=== PATIENT | female | born 1950 | race Caucasian/White ===

== ENCOUNTER → 2017-07-05 | Outpatient (REF) | payer MEDICARE | LOC: M LAB REF 11:10 | DX: Z11.59 Encounter for screening for other viral diseases (principal) | CPT/HCPCS: 87633 ==

== ENCOUNTER 2017-07-06 07:28 | Emergency (ER) | payer MEDICARE ==
[2017-07-06] MEDS: ONDANSETRON 4MG/2ML VIAL (J2405) IV (08:15)
[2017-07-06 08:27] LABS: HEMATOCRIT 36.5 % (36.0-47.0); HEMOGLOBIN 12.6 g/dl (12.0-16.0); MEAN CORPUSCULAR HEMOGLOBIN 30.8 pg (27.0-33.0); MEAN CORPUSCULAR HGB CONC 34.5 g/dl (32.0-36.5); MEAN CORPUSCULAR VOLUME 89.2 fl (80.0-96.0); PLATELET COUNT, AUTOMATED 169 10^3/uL (150-450); RED BLOOD COUNT 4.09 10^6/uL (4.00-5.40); RED CELL DISTRIBUTION WIDTH 12.4 % (11.5-14.5); WHITE BLOOD COUNT 7.9 10^3/uL (4.0-10.0)
[2017-07-06 08:34] LABS: ADD MANUAL DIFFER YES; DIFF SLIDE NUMBER 126; POSITIVE MORPH POS FLAG
[2017-07-06 08:44] LABS: ANION GAP 8 MEQ/L (8-16); BLOOD UREA NITROGEN 20 MG/DL (7-18); CALCIUM LEVEL 8.6 MG/DL (8.8-10.2); CARBON DIOXIDE LEVEL 27 MEQ/L (21-32); CHLORIDE LEVEL 102 MEQ/L (98-107); CREATININE FOR GFR 0.91 MG/DL (0.55-1.30); GLOMERULAR FILTRATION RATE > 60.0 (>45); GLUCOSE, FASTING 112 MG/DL (70-100); POTASSIUM SERUM 3.5 MEQ/L (3.5-5.1); SODIUM LEVEL 137 MEQ/L (136-145)
[2017-07-06 08:45] LABS: LACTIC ACID SEPSIS PROTOCOL 1.7 MMOL/L (0.4-2.0)
[2017-07-06 08:47] LABS: BANDS 18 % (< 11); LYMPHOCYTES 13 % (16-52); METAMYELOCYTES 2 % (0-0); MONOCYTES 7 % (0-8); NEUTROPHILS 60 % (35-75)
[2017-07-06 08:48] LABS: ANISOCYTOSIS 1+; PLATELET CLUMPS SMALL AMT; PLATELET ESTIMATE NORMAL (NORMAL); POIKILOCYTOSIS 1+
[2017-07-06] MEDS: NS 1,000 ML IV (09:25)
[2017-07-06] MEDS: ACETAMINOPHEN TAB 650MG DOSE (2X325MG) PO (10:03)
[2017-07-06] MEDS: KETOROLAC 30 MG/ML VIAL (J1885) IV (10:04)
== END 2017-07-06 10:58 | disposition home or self-care (01) ==
LOC: M ED 07:28
DX: J09.X2 Influenza due to identified novel influenza A virus with other respiratory manifestations (principal); R93.8 Abnormal findings on diagnostic imaging of other specified body structures; Z88.8 Allergy status to other drugs, medicaments and biological substances
CPT/HCPCS: J1885

== ENCOUNTER → 2017-12-15 | Outpatient (REF) | payer MEDICARE ==
[2017-12-17 14:40] LABS: FATS NEUTRAL Normal (.); FATS TOTAL Normal (.)
== END ==
LOC: M LAB REF 15:58
DX: R19.4 Change in bowel habit (principal)
CPT/HCPCS: 82705

== ENCOUNTER → 2019-11-27 | Outpatient (CLI) | payer MEDICARE ==
[~2019-11-27] MED LIST: IRON325T9 PO; PROB250C PO; VITA100T59 PO
== END ==
LOC: M LABSMTC 10:19
PROVIDERS: ATTEND Anesthesiology
DX: Z03.818 Encounter for observation for suspected exposure to other biological agents ruled out (principal)
CPT/HCPCS: C9803; U0003

== ENCOUNTER 2019-11-30 09:05 | Day surgery (SDC) | payer MEDICARE ==
[~2019-11-30] VITALS: Ht 167.6 cm; Wt 55.8 kg
[~2019-11-30 09:05] MED LIST changes: +LIDOCAINE 2% 100MG/5ML SDV (FOR ANES.) As Ordered ONE; +NS 1,000 ML IV ONE; +propofoL 200 MG/20 ML VIAL As Ordered ONE
--- NOTE | 2019-11-30 11:20 | ROOR ---
Patient Name: Lisa Georges Procedure Date: 11/30/2019 10:30 AM Date of : 1950 Age: 69 Room: [facility] Gender: Female Note Status: Finalized Procedure: Upper GI endoscopy Indications: Iron deficiency anemia Providers: Elvis Brown MD Referring MD: SPARKLE Angel Requesting Provider: Medicines: Monitored Anesthesia Care Complications: No immediate complications. Procedure: Pre-Anesthesia Assessment: - Prior to the procedure, a History and Physical was performed, and patient medications and allergies were reviewed. The patient is competent. The risks and benefits of the procedure and the sedation options and risks were discussed with the patient. All questions were answered and informed consent was obtained. Patient identification and proposed procedure were verified by the physician, the nurse and the anesthesiologist in the endoscopy suite. Mental Status Examination: alert and oriented. Airway Examination: normal oropharyngeal airway and neck mobility. Respiratory Examination: clear to auscultation. CV Examination: normal. Prophylactic Antibiotics: The patient does not require prophylactic antibiotics. Prior Anticoagulants: The patient has taken no previous anticoagulant or antiplatelet agents. ASA Grade Assessment: II - A patient with mild systemic disease. After reviewing the risks and benefits, the patient was deemed in satisfactory condition to undergo the procedure. The anesthesia plan was to use monitored anesthesia care (MAC). Immediately prior to administration of medications, the patient was re-assessed for adequacy to receive sedatives. The heart rate, respiratory rate, oxygen saturations, blood pressure, adequacy of pulmonary ventilation, and response to care were monitored throughout the procedure. The physical status of the patient was re-assessed after the procedure. The Endoscope was introduced through the mouth, and advanced to the second part of duodenum. The upper GI endoscopy was accomplished without difficulty. The patient tolerated the procedure well. Findings: The examined esophagus was normal. A small hiatal hernia was present. The Z-line was regular and was found 40 cm from the incisors. The entire examined stomach was normal. The duodenal bulb, first portion of the duodenum and second portion of the duodenum were normal. Impression: - Normal esophagus. - Small hiatal hernia. - Z-line regular, 40 cm from the incisors. - Normal stomach. - Normal duodenal bulb, first portion of the duodenum and second portion of the duodenum. - No specimens collected. Recommendation: - Discharge patient to home (ambulatory). Elvis Brown MD Elvis Brown MD 11/30/2019 11:19:42 AM Electronically signed by Elvis Brown MD Number of Addenda: 0 Note Initiated On: 11/30/2019 10:30 AM Estimated Blood Loss: Estimated blood loss: none.
--- NOTE | 2019-11-30 11:24 | ROOR ---
Patient Name: Lisa Georges Procedure Date: 11/30/2019 10:30 AM Date of : 1950 Age: 69 Room: [facility] Gender: Female Note Status: Finalized Procedure: Colonoscopy Indications: Iron deficiency anemia Providers: Elvis Brown MD Referring MD: SPARKLE Angel Requesting Provider: Medicines: Monitored Anesthesia Care Complications: No immediate complications. Procedure: Pre-Anesthesia Assessment: - Prior to the procedure, a History and Physical was performed, and patient medications and allergies were reviewed. The patient is competent. The risks and benefits of the procedure and the sedation options and risks were discussed with the patient. All questions were answered and informed consent was obtained. Patient identification and proposed procedure were verified by the physician, the nurse and the anesthesiologist in the endoscopy suite. Mental Status Examination: alert and oriented. Airway Examination: normal oropharyngeal airway and neck mobility. Respiratory Examination: clear to auscultation. CV Examination: normal. Prophylactic Antibiotics: The patient does not require prophylactic antibiotics. Prior Anticoagulants: The patient has taken no previous anticoagulant or antiplatelet agents. ASA Grade Assessment: II - A patient with mild systemic disease. After reviewing the risks and benefits, the patient was deemed in satisfactory condition to undergo the procedure. The anesthesia plan was to use monitored anesthesia care (MAC). Immediately prior to administration of medications, the patient was re-assessed for adequacy to receive sedatives. The heart rate, respiratory rate, oxygen saturations, blood pressure, adequacy of pulmonary ventilation, and response to care were monitored throughout the procedure. The physical status of the patient was re-assessed after the procedure. The Colonoscope was introduced through the anus and advanced to the cecum, identified by appendiceal orifice and ileocecal valve. The colonoscopy was technically difficult and complex due to significant looping and a tortuous colon. Successful completion of the procedure was aided by applying abdominal pressure. The patient tolerated the procedure well. The quality of the bowel preparation was good. Findings: Hemorrhoids were found on perianal exam. An infiltrative non-obstructing medium-sized mass was found in the ascending colon. The mass was partially circumferential (involving one-half of the lumen circumference). The mass measured three cm in length. No bleeding was present. This was biopsied with a cold forceps for histology. Estimated blood loss was minimal. The retroflexed view of the distal rectum and anal verge was normal and showed no anal or rectal abnormalities. Impression: - Hemorrhoids found on perianal exam. - Likely malignant tumor in the ascending colon. Biopsied. - The distal rectum and anal verge are normal on retroflexion view. Recommendation: - Discharge patient to home (ambulatory). - Return to my office in 1 week. - Perform CT scan (computed tomography) of the abdomen with contrast at appointment to be scheduled. Elvis Brown MD Elvis Brown MD 11/30/2019 11:23:40 AM Electronically signed by Elvis Brown MD Number of Addenda: 0 Note Initiated On: 11/30/2019 10:30 AM Estimated Blood Loss: Estimated blood loss was minimal.
[2019-11-30 12:01] VITALS: BP 144/70
== END 2019-11-30 12:04 | disposition home or self-care (01) ==
LOC: M OPP 09:05
PROVIDERS: ATTEND Surgery
DX: D50.9 Iron deficiency anemia, unspecified (principal); C18.9 Malignant neoplasm of colon, unspecified; K44.9 Diaphragmatic hernia without obstruction or gangrene; K64.8 Other hemorrhoids; R63.4 Abnormal weight loss; Z80.0 Family history of malignant neoplasm of digestive organs; Z88.1 Allergy status to other antibiotic agents; Z88.5 Allergy status to narcotic agent

== ENCOUNTER → 2019-12-07 | Outpatient (CLI) | payer MEDICARE ==
[~2019-12-07] MED LIST changes: +GASTROGRAFIN SOLUTION 30ML (Q9963) As Ordered ONE; +ISOVUE-370 76% 100ML VIAL As Ordered ONE; -LIDOCAINE 2% 100MG/5ML SDV (FOR ANES.) As Ordered ONE; -NS 1,000 ML IV ONE; -propofoL 200 MG/20 ML VIAL As Ordered ONE
--- NOTE | 2019-12-08 04:09 | REP ---
REASON: Recent diagnosis of colon cancer. The only prior for comparison is 06/28/2015. That examination showed multiple hepatic hemangiomas and cholelithiasis with bilateral Bosniak class I renal cysts. Small hypodensities were seen in the pancreas. A pancreatic MRI of 07/19/2015 showed no evidence of a pancreatic abnormality. CONTRAST TODAY: 100 mL Isovue-370. The precontrast-enhanced portion of the examination shows hepatic and splenic densities to be within normal limits. There are low-density hepatic lesions, consistent with known hemangiomas. Note is again made of cholelithiasis. In the interpolar region of the left kidney, there is a calcification, which is unchanged. There is no obstructive phenomena. The lung bases are within normal limits. They are essentially unchanged compared to a CT chest of 08/30/2018. The contrast-enhanced portion of the examination shows peripheral nodular enhancement of the known hepatic hemangiomas. No other enhancing hepatic lesions are identified. The gallbladder wall does not enhance abnormally. The spleen, pancreas, adrenal glands, and kidneys are essentially unchanged. Renal cysts are noted, status quo. There are no abnormal enhancing pancreatic abnormalities. The abdominal aorta and para-aortic regions are within normal limits. No free fluid or free air is seen in the abdomen or pelvis. The intra-abdominal and intrapelvic bowel loops and their mesenteries appear to be within normal limits. There might be some thickening of the henry of the rectosigmoid region, which is poorly evaluated by CT. There is no contrast in that portion of the bowel. There is no evidence of intra-abdominal or intrapelvic adenopathy. Bone window technique throughout the exam shows no significant change in the appearance of the imaged osseous structures. IMPRESSION: There is no evidence of acute disease. Findings as described above. Electronically Signed by Adam Mcknight DO 12/08/2019 04:33 P
== END ==
LOC: M RAD 10:55
PROVIDERS: ATTEND Surgery
DX: C18.2 Malignant neoplasm of ascending colon (principal)
CPT/HCPCS: 74178; Q9963; Q9967

== ENCOUNTER → 2019-12-08 | Outpatient (CLI) | payer MEDICARE ==
[~2019-12-08] MED LIST changes: -GASTROGRAFIN SOLUTION 30ML (Q9963) As Ordered ONE; -ISOVUE-370 76% 100ML VIAL As Ordered ONE
[2019-12-08 11:12] LABS: HEMATOCRIT 32.1 % (36.0-47.0); HEMOGLOBIN 9.5 g/dl (12.0-15.5); MEAN CORPUSCULAR HEMOGLOBIN 23.6 pg (27.0-33.0); MEAN CORPUSCULAR HGB CONC 29.6 g/dl (32.0-36.5); MEAN CORPUSCULAR VOLUME 79.9 fl (80.0-96.0); PLATELET COUNT, AUTOMATED 354 10^3/uL (150-450); RED BLOOD COUNT 4.02 10^6/uL (4.00-5.40); WHITE BLOOD COUNT 7.8 10^3/uL (4.0-10.0)
[2019-12-08 11:36] LABS: BLOOD UREA NITROGEN 22 MG/DL (7-18); CALCIUM LEVEL 8.9 MG/DL (8.8-10.2); CARBON DIOXIDE LEVEL 28 MEQ/L (21-32); CHLORIDE LEVEL 109 MEQ/L (98-107); CREATININE FOR GFR 0.79 MG/DL (0.55-1.30); GLOMERULAR FILTRATION RATE > 60.0 (>39); GLUCOSE, FASTING 84 MG/DL (70-100); POTASSIUM SERUM 4.2 MEQ/L (3.5-5.1); SODIUM LEVEL 142 MEQ/L (136-145)
== END ==
LOC: M LAB 09:41
PROVIDERS: ATTEND Surgery
DX: C18.2 Malignant neoplasm of ascending colon (principal); D50.9 Iron deficiency anemia, unspecified

== ENCOUNTER → 2020-05-23 | Outpatient (CLI) | payer MEDICARE ==
[~2020-05-23] MED LIST changes: +GASTROGRAFIN SOLUTION 30ML (Q9963) As Ordered ONE; +ISOVUE-370 76% 100ML VIAL As Ordered ONE
--- NOTE | 2020-05-23 15:43 | REP ---
INDICATION: MALIGNANT NEOPLASM OF ASCENDING COLON COMPARISON: None TECHNIQUE: Axial contrast enhanced images from the thoracic inlet to the upper abdomen with coronal and sagittal reformations using 100 ml Isovue 370 intravenous contrast material. This CT examination was performed using the following dose reduction techniques: Automated exposure control, adjustment of mA and/or kv according to the patient's size, and use of iterative reconstruction technique. FINDINGS: Bilateral lung parker are relatively well aerated and essentially clear. No consolidation, suspicious nodule or mass lesion. Chronic fibroatelectatic changes at the deep right posterior sulcus remains stable compared to 12/07/2019. no effusion. No pneumothorax. Tracheobronchial tree is patent. No axillary, hilar, or mediastinal adenopathy. Thoracic aorta, pulmonary vasculature, and heart/pericardium are normal. [id number]-Vduf identified with tip in the SVC. Surrounding musculoskeletal structures without acute osseous abnormality. IMPRESSION: No acute mediastinal or pleuroparenchymal process appreciated. Mild chronic changes at the right base suggested. <Electronically signed by Andrew Erazo > 05/23/20 [id number]
--- NOTE | 2020-05-23 15:52 | REP ---
INDICATION: MALIGNANT NEOPLASM OF ASCENDING COLON. COMPARISON: 12/07/2019 TECHNIQUE: Axial contrast-enhanced images from the lung bases to the pubic symphysis using oral and 100 cc Isovue 370 intravenous contrast material. Delayed images of the abdomen as well as coronal and sagittal reformations obtained. This CT examination was performed using the following dose reduction techniques: Automated exposure control, adjustment of mA and/or kv according to the patient's size, and the use of iterative reconstruction technique. FINDINGS: Liver includes stable 3.3 cm and 4 cm hemangiomas in the right lobe approaching the dome and medial segment left lobe. No further hepatic lesions are identified. Spleen, pancreas, bilateral adrenal glands are normal. Cholelithiasis noted without acute cholecystitis. Kidneys demonstrate few bilateral simple appearing cysts. The enteric system is without obstruction or acute inflammatory process. Postsurgical changes involving the ascending colon noted without obvious mass lesion or recurrence. Pelvis demonstrates normal bladder and evidence for prior hysterectomy. No ascites. No free air. No adenopathy. Abdominal aorta without aneurysm or dissection. Musculoskeletal structures demonstrate age-related degenerative changes without acute osseous abnormality. IMPRESSION: 1. Evidence for prior partial resection involving the ascending colon without evidence for recurrence or metastatic disease. 2. Stable benign hepatic hemangiomas measuring 3.3 cm and 4 cm. 3. Cholelithiasis. 4. Stable benign-appearing renal cysts <Electronically signed by Andrew Erazo > 05/23/20 [id number]
== END ==
LOC: M RAD 13:28
PROVIDERS: ATTEND Internal Medicine Hematology & Oncology
DX: C18.9 Malignant neoplasm of colon, unspecified (principal)
CPT/HCPCS: 71260; 74177; Q9963; Q9967

== ENCOUNTER → 2020-11-21 | Outpatient (CLI) | payer MEDICARE ==
[~2020-11-21] MED LIST changes: -GASTROGRAFIN SOLUTION 30ML (Q9963) As Ordered ONE; -ISOVUE-370 76% 100ML VIAL As Ordered ONE
--- NOTE | 2020-11-21 09:00 | REPPI ---
INDICATION: R10.819 ABDOMINAL TENDERNESS R19.7 DIARRHEA. COMPARISON: Chest 07/06/2017. TECHNIQUE: Supine and erect views of the abdomen, frontal view chest. FINDINGS: There is no evidence of free intraperitoneal air. There is no evidence of bowel obstruction. Multiple phleboliths are seen in the pelvis. Three gallstones are seen in the right upper quadrant measuring up to 1.9 cm in diameter. There are mild degenerative changes of the spine. No infiltrate is seen in either lung. The heart is normal in size. There is mild calcification of the thoracic aorta. The mediastinal silhouette is unchanged. IMPRESSION: No free air or obstruction. Gallstones are seen in the gallbladder. No infiltrate is seen in either lung. <Electronically signed by Nathaniel Parks > 11/21/20 [id number]
== END ==
LOC: M PLAIMG 08:29
PROVIDERS: ATTEND Physician Assistant
DX: K80.20 Calculus of gallbladder without cholecystitis without obstruction (principal); R10.819 Abdominal tenderness, unspecified site; R19.7 Diarrhea, unspecified

== ENCOUNTER → 2020-11-22 | Outpatient (REF) | payer MEDICARE | LOC: M LAB REF 09:32 | PROVIDERS: ATTEND Physician Assistant | DX: R10.819 Abdominal tenderness, unspecified site (principal); R19.7 Diarrhea, unspecified ==

== ENCOUNTER 2020-12-20 16:41 | Inpatient (IN) | payer MEDICARE ==
[~2020-12-20] VITALS: Ht 167.6 cm; Wt 57.7 kg
[2020-12-20] MEDS ORDERED: MORPHINE 4 MG/ML 1ML VIAL/SYRINGE (J2270) IV PRN (17:55)
[2020-12-20] MEDS ORDERED: NS 1,000 ML IV SCH (17:55)
[2020-12-20] MEDS ORDERED: ONDANSETRON 4MG/2ML VIAL IV ONE (17:55)
[2020-12-20 18:24] LABS: BASO # 0.1 10^3/uL (0.0-0.2); BASO % 0.7 % (0.0-1.0); EOS # 0.1 10^3/uL (0.0-0.5); HEMATOCRIT 30.7 % (36.0-47.0); HEMOGLOBIN 9.8 g/dl (12.0-15.5); LYMPH # 1.8 10^3/uL (1.5-5.0); LYMPH % 25.1 % (24.0-44.0); MEAN CORPUSCULAR HEMOGLOBIN 28.7 pg (27.0-33.0); MEAN CORPUSCULAR HGB CONC 31.9 g/dl (32.0-36.5); MEAN CORPUSCULAR VOLUME 89.8 fl (80.0-96.0); MONO # 0.6 10^3/uL (0.0-0.8); MONO % 8.7 % (2.0-8.0); NEUTROPHILS # 4.4 10^3/uL (1.5-8.5); NEUTROPHILS % 62.9 % (36.0-66.0); PLATELET COUNT, AUTOMATED 299 10^3/uL (150-450); RED BLOOD COUNT 3.42 10^6/uL (4.00-5.40)
[2020-12-20 18:48] LABS: ALBUMIN 3.6 GM/DL (3.2-5.2); ALT/SGPT 29 U/L (12-78); BILIRUBIN,DIRECT 0.1 MG/DL (0.0-0.2); BILIRUBIN,TOTAL 0.3 MG/DL (0.2-1.0); BLOOD UREA NITROGEN 16 MG/DL (7-18); CALCIUM LEVEL 8.9 MG/DL (8.8-10.2); CARBON DIOXIDE LEVEL 26 MEQ/L (21-32); CHLORIDE LEVEL 107 MEQ/L (98-107); CREATININE FOR GFR 0.76 MG/DL (0.55-1.30); GLOMERULAR FILTRATION RATE > 60.0 (>39); GLUCOSE, FASTING 101 MG/DL (70-100); LIPASE 202 U/L (73-393); POTASSIUM SERUM 4.1 MEQ/L (3.5-5.1); SODIUM LEVEL 140 MEQ/L (136-145); TOTAL PROTEIN 6.3 GM/DL (6.4-8.2)
[2020-12-20] MEDS ORDERED: ISOVUE-370 76% 100ML VIAL As Ordered ONE (19:15)
--- NOTE | 2020-12-20 20:10 | REPVR ---
PROCEDURE INFORMATION: Exam: CT Abdomen And Pelvis With Contrast Exam date and time: 12/20/2020 7:20 PM Age: 70 years old Clinical indication: Abdominal pain; Prior surgery; Additional info: Abd pain TECHNIQUE: Imaging protocol: Computed tomography of the abdomen and pelvis with contrast. Radiation optimization: All CT scans at this facility use at least one of these dose optimization techniques: automated exposure control; mA and/or kV adjustment per patient size (includes targeted exams where dose is matched to clinical indication); or iterative reconstruction. Contrast material: ISOVUE 370; Contrast volume: 100 ml; Contrast route: INTRAVENOUS (IV); COMPARISON: CT ABD PELVIS WITH CONTRAST 09/27/2020 4:49 PM FINDINGS: Lungs: Bibasilar atelectasis. Liver: There are 3 lobular peripherally nodular enhancing foci demonstrated in the hepatic dome, in segment 4A of the left lobe of the liver, and a small focus in the posterior patent dome measuring up to 3.1 cm in the hepatic dome. Findings are consistent with incompletely opacified hemangiomas and are stable in comparison to the prior study. There is a diffuse decrease in hepatic parenchymal density, consistent with steatosis. Gallbladder and bile ducts: There are gallstones present. There is mild thickening of the gallbladder wall. No pericholecystic fluid demonstrated. Clinical correlation to exclude cholecystitis suggested. Pancreas: Visible nondilated pancreatic duct. Pancreas otherwise unremarkable. Spleen: Normal. No splenomegaly. Adrenal glands: Normal. No mass. Kidneys and ureters: Normal. No hydronephrosis. Stomach and bowel: There are multiple dilated loops of small bowel throughout the abdomen. Findings consistent with small-bowel obstruction. Severe small-bowel enteritis could produce a similar finding. There is a suture line demonstrated in the right lower quadrant status post subtotal right hemicolectomy at nevaeh ileocolic junction where the terminal ileum demonstrates a focally thickened wall with decreased caliber. Finding may represent a site of obstruction with differential including adhesions, scarring and small bowel neoplasm. Appendix: No evidence of appendicitis. Intraperitoneal space: There is a small amount of free intraperitoneal fluid present. Vasculature: The aortoiliac vessels demonstrate mild atherosclerotic calcification. Lymph nodes: Unremarkable. No enlarged lymph nodes. Urinary bladder: Unremarkable as visualized. Reproductive: There has been a hysterectomy. Bones/joints: The spine demonstrates mild degenerative changes. Moderate central spinal stenosis L2-L3, moderate to severe central spinal stenosis L3-L4, severe central spinal stenosis L4-L5. Soft tissues: Unremarkable. IMPRESSION: 1. There has been a hysterectomy. 2. Three incompletely opacified hepatic hemangiomas, stable in comparison to the prior study of 09/27/2020. 3. There is a diffuse decrease in hepatic parenchymal density, consistent with steatosis. 4. There are gallstones present. There is mild thickening of the gallbladder wall. No pericholecystic fluid demonstrated. Clinical correlation to exclude cholecystitis suggested. 5. There is a small amount of free intraperitoneal fluid present. 6. Findings consistent with small-bowel obstruction likely at the ileocolic junction where there is focal thickening and narrowing of the distal ileum suggesting possible inflammation, scarring or neoplasm. Electronically signed by: Jag Loving On 12/20/2020 20:09:37 PM
[2020-12-20] MEDS ORDERED: diphenhydrAMINE 50MG/ML VIAL (J1200) IV PRN (21:20)
[2020-12-20 21:48] LABS: RSV AMPLIFICATION NEGATIVE (NEGATIVE)
--- NOTE | 2020-12-20 22:00 | HPEPDOC ---
General Date of Admission Dec 20, 2020 at 21:16 Date of Service: Dec 20, 2020 Other Providers PCP- tono, Oncology surgical [facility], Oncology chemo Dr. castillo Attending Physician: BLAKE ALVARADO MD Chief Complaint The patient is a 70-year-old female admitted with a reason for visit of SBO. Source: Patient, Family (daughter at bedside) Exam Limitations: No limitations Timing/Duration: Week(s), Getting worse, This afternoon Severity: Severe Associated Symptoms: Malaise History of Present Illness Lisa Georges is a 70-year-old white female with a history of anemia and colon cancer status post chemo/colon resection in 2019 who presents with worsening abdominal pain to ER today. Patient reports that she has had abdominal pain on and off throughout her cancer diagnosis and treatment, but noted a change in the past month and acutely today around 2 PM which prompted her to come to ER. She does note that her bellybutton is tender and that has developed 3 weeks ago; she reports episodic sharp bellybutton pain around 3 times a day. Patient also describes her abdominal pain as a moderate rated "brick on gut". She reports she did see her PCP outpatient about 2 weeks ago who ordered an x-ray and stool sample; she was found to have gallstones with recommendations for conservative rest. As sensations worsened, unrelieved by Tylenol; patient came to the ER today. Patient reports that she had a formed BM earlier today; she does endorse some color changes to stool in the past 3 weeks but she relates this to eating beets. Pt denies clement, sinus congestion, sore throat, productive cough, sob, palpitations, chest pain, n/v/d, weakness, sensory changes or syncope. Patient does endorse easily fatigued in the past month more so than her state of health since her cancer treatment. Of note, CT scan positive small bowel obstruction, gallstones, focal consolidation of the ileocolic junction and hepato steatosis. Patient will be admitted for further evaluation of presenting concerns. Home Medications Scheduled PRN Acetaminophen (Tylenol Extra Strength) 500 Mg Tablet, 500 MG PO Q4H PRN for PAIN LEVEL 1-5, (Reported) Allergies Coded Allergies: ciprofloxacin (Verified Allergy, Intermediate, tendon pain, 01/31/20) meperidine (Verified Allergy, Unknown, CONFUSION, 11/24/19) Past Medical History Medical History Colon CA- chemo completed July 2019, Anemia, hx of blood transfusion Surgical History colon resection Dec 2019, transvagional hysterectomy Family History Significant Family History: Cancer (younger sister of Colon CA at 44) Social History * Smoker: Denies Alcohol: occationally (last glass of wine 12/19) Drugs: denies Recent Travel/Sick Contacts: Denies: Recent travel, Recent sick contacts Psychosocial History: No pertinent psych hx A-FIB/CHADSVASC A-FIB History Current/History of A-Fib/PAF?: No Review of Systems Constitutional: Denies: Chills, Fever, Night Sweats Eyes: Denies: Pain, Vision change ENT: Denies: Head Aches, Ear Pain, Dysphagia Skin: Denies: Rash, Lesions, Breakdown Pulmonary: Denies: Dyspnea, Cough Cardiovascular: Denies: Chest Pain, Palpitations, Orthopnea, Paroxysmal Noc. Dyspnea, Lt Headedness Gastrointestinal: Reports: Nausea, Vomiting, Abdominal Pain, Constipation Genitourinary: Denies: Dysuria, Frequency, Incontinence, Retention Hematologic: Denies: Bruising, Bleeding Excessively Musculoskeletal: Denies: Neck Pain, Back Pain, Joint Pain, Muscle Pain, Spasms Neurological: Denies: Weakness, Numbness, Change in speech, Confusion Psych: Reports: Mood Normal; Denies: Depression, Memory Issues Physical Examination General Exam: Positive: Alert, Cooperative, No Acute Distress Eye Exam: Positive: PERRLA, Conjunctiva & lids normal, EOMI; Negative: Sclera icteric ENT Exam: Positive: Atraumatic, Mucous membr. moist/pink, Pharynx Normal Neck Exam: Positive: Supple; Negative: JVD, thyromegaly Chest Exam: Positive: Clear to auscultation, Normal air movement Heart Exam: Positive: Rate Normal, Regular Rhythm, Normal S1, Normal S2; Negative: Murmurs, Rubs Telemetry: Positive: No significant arrhythmia Abdomen Exam: Positive: Soft, Tenderness, Hernia (umbilical nodule, hard ; pt guards when palpating) Extremity Exam: Positive: Normal pulses; Negative: Clubbing, Cyanosis, Edema Skin Exam: Positive: Nl turgor and temperature; Negative: Breakdown, Lesion Neuro Exam: Positive: Normal Gait, Normal Speech, Cranial Nerves 3-12 NL, Reflexes 2+ Psych Exam: Positive: Mental status NL, Mood NL, Oriented x 3 Vital Signs Vital Signs Date Time Temp Pulse Resp B/P (MAP) Pulse Ox O2 Delivery O2 Flow Rate FiO2 12/20/20 18:29 12/20/20 18:19 20 98 Room Air 12/20/20 16:41 97.3 78 Laboratory Data Labs 24H Laboratory Tests 2 12/20/20 17:00: Immature Granulocyte % (Auto) 0.6, Neutrophils (%) (Auto) 62.9, Lymphocytes (%) (Auto) 25.1, Monocytes (%) (Auto) 8.7H, Eosinophils (%) (Auto) 2.0, Basophils (%) (Auto) 0.7, Neutrophils # (Auto) 4.4, Lymphocytes # (Auto) 1.8, Monocytes # (Auto) 0.6, Eosinophils # (Auto) 0.1, Basophils # (Auto) 0.1, Nucleated Red Blood Cells % (auto) 0.0, Anion Gap 7L, Glomerular Filtration Rate > 60.0, Calcium Level 8.9, Total Bilirubin 0.3, Direct Bilirubin 0.1, Aspartate Amino Transf (AST/SGOT) 27, Alanine Aminotransferase (ALT/SGPT) 29, Alkaline Phosphatase 100, Total Protein 6.3L, Albumin 3.6, Albumin/Globulin Ratio 1.3, Lipase 202 12/20/20 17:59: Urine Color YELLOW, Urine Appearance CLEAR, Urine pH 5.0, Urine Specific [place] 1.011, Urine Protein NEGATIVE, Urine Glucose (UA) NEGATIVE, Urine Ketones TRACEH, Urine Blood 1+H, Urine Nitrite NEGATIVE, Urine Bilirubin NEGATIVE, Urine Urobilinogen 0.2, Urine Leukocyte Esterase 2+H, Urine WBC (Auto) 13H, Urine RBC (Auto) 3, Urine Hyaline Casts (Auto) 0, Urine Bacteria (Auto) 1+H, Urine Squamous Epithelial Cells 0, Urine Sperm (Auto) 12/20/20 21:00: CBC/BMP Laboratory Tests 12/20/20 17:00 Microbiology Microbiology 12/20/20 Urine Culture, Received Pending RAD Interpretation STUDY: ct a/p RAD Interpretation: Other Result Comments: (SBO vs severe SB enteritis, possible cholecystitis consideration given dilation ) Assessment/Plan 1. Abdominal pain secondary to SBO: In setting of colon resection 1 year ago and known history of colorectal cancer. -Monitor pt, monitor for worsening s/s. Patient fortunately without elevated infectious markers; will check pro-Ye and consider coverage -NGT LIS -Bowel rest, n.p.o. with fluid hydration. -A.m. labs -Appreciate surgery, Dr. Winters's recommendations -Patient reports that she has not had a PET scan outpatient and last oncology ordered CT was roughly 3 months ago; consider oncology consult accordingly as there is concern for neoplastic obstruction component given history, CT abdomen pelvis noting an area of focal thickening and patient clinical presentation of hard, tender umbilical nodule (SMJ nodule vs. general umbilical hernia). *Note: there was possible concern of a developing cholecystitis and patient with hepatic steatosis per CT read given patient gallstones, but patient without elevated LFTs and right upper quadrant ultrasound negative for cholecystitis. 2. Rash: Abdomen and anterior chest. Not raised, no urticaria. Patient reports she has been having some flushing to the chest recently, but did not relate this to sun exposure. During exam patient did have some similar coloration to abdomen that is on her anterior chest post right upper quadrant ultrasound. This developed during ED admission -possibly related to contact with lubricating substance/warmth and pressure of the ultrasound versus developing contact dermatitis. Patient only had received morphine regarding medication ministration contributors. Patient denies itching or discomfort. Patient has no known sensitivities or allergies in her past that result in rash per her report. -Plan to monitor patient and if worsening development consider antihistamines accordingly. Patient presently did not want to trial Benadryl. May be generalized bodily stress reaction. 3. Anemia: could be contributing to symptoms of fatigue, last hgb 12. -Monitor patient, trend lab work, monitor for signs of overt bleeding. Type and screen and anemia panel. -Check stool occult given patient reported some darkening of the stool. Protonix, pt on rocephin given below. Fortunately, right upper quadrant ultrasound shows no active blood flow to the hemangiomas in the ovoid isoechogenic focus of the right lobe of the liver. Patient has had blood transfusions in the past with anemia when she was first diagnosed with cancer. She is in agreement with further blood transfusions if required. 4. UTI: Mild, pt did report some urinary changes past month. Plan to monitor, treat empirically. Check pro-ye, Follow up culture for de-escalation. DVT: SCDs CODE: DNR/DNI. CODE STATUS discussed in detail with patient (and patient's daughter at bedside whom the patient has noted as her power of privacy attorney and decision making constitution party if needed). Patient reports that she is in agreement with blood transfusion if needed. She did detail that she has a living will and at this point, "would NOT want heroic measures" in regards to NOT wanting vasopressors. Plan / VTE VTE Prophylaxis Ordered?: Yes VTE Exclusion Pharmacological: Bleeding Risk SWATHI [employer] Dec 20, 2020 21:35
--- NOTE | 2020-12-20 22:15 | REPVR ---
PROCEDURE INFORMATION: Exam: US Abdomen, Limited; Right Upper Quadrant Exam date and time: 12/20/2020 10:02 PM Age: 70 years old Clinical indication: Abnormal findings; Abnormal radiologic finding of the abdomen; Radiologic exam and body structure: CT abd/pelvis; Additional info: Abd pain, gallstones, concern cholecystitis on CT TECHNIQUE: Imaging protocol: US abdomen. Real time ultrasound with image documentation. Limited exam focused on the right upper quadrant. COMPARISON: CT ABD/PEL W/IV CONTRAST ONLY 12/20/2020 7:13 PM FINDINGS: Liver: The liver is diffusely echogenic relative to the right kidney, findings consistent with steatosis. Ovoid isoechoic focus in the right lobe of the liver measures 5 x 4.5 x 2.5 cm without evidence of significant blood Flow within the lesion using color flow Doppler. Further evaluation with pre and post-contrast hepatic MRI suggested. Gallbladder: There are gallstones present. No evidence of cholecystitis demonstrated. Common bile duct: The common bile duct measures 5.3 mm. No mass or choledocholithiasis. Pancreas: Visualized pancreas is unremarkable. Right kidney: Right kidney measures 10.1 x 5 x 3.8 cm. Simple cyst right kidney measures 1.5 x 1.1.8 cm. No follow-up suggested. IMPRESSION: 1. Hepatic steatosis. 2. Ovoid isoechoic focus in the right lobe of the liver as described above without evidence of significant blood Flow within the lesion using color flow Doppler. Lesion not fully characterized on this examination Further evaluation with pre and post-contrast hepatic MRI suggested. 3. There are gallstones present. No evidence of cholecystitis demonstrated. 4. Small right renal cyst. Electronically signed by: Jag Loving On 12/20/2020 22:15:29 PM
[2020-12-20] MEDS: KCL 10MEQ IN D5/0.45NS 1000ML 1,000 ML IV SCH (22:27)
[2020-12-20 22:36] VITALS: BP 146/83
[2020-12-20 23:05] LABS: FERRITIN 23 NG/ML (8-252); IRON (FE) 25 UG/DL (50-170); PERCENT SATURATION 5.9 % (13.2-45.0); TOTAL IRON BINDING CAPACITY 421 UG/DL (250-450)
[2020-12-20 23:15] LABS: VITAMIN B12 LEVEL 513 PG/ML (247-911)
[2020-12-20] MEDS ORDERED: ACET-897 PO (23:54)
[2020-12-21] MEDS ORDERED: CHLORASEPTIC SPRAY MT ONE (00:10)
[2020-12-21] MEDS: CHLORASEPTIC SPRAY MT PRN ×3 (02:15→06:22)
[2020-12-21] MEDS ORDERED: cefTRIAXone SOD 1 GM in D5W MINI-BAG PLUS 50 ML IV SCH (03:00)
[2020-12-21 06:00] VITALS: BP 130/81
[2020-12-21 06:19] LABS: HEMATOCRIT 28.7 % (36.0-47.0); HEMOGLOBIN 9.4 g/dl (12.0-15.5); MEAN CORPUSCULAR HGB CONC 32.8 g/dl (32.0-36.5); MEAN CORPUSCULAR VOLUME 88.6 fl (80.0-96.0); PLATELET COUNT, AUTOMATED 276 10^3/uL (150-450); RED BLOOD COUNT 3.24 10^6/uL (4.00-5.40); WHITE BLOOD COUNT 5.9 10^3/uL (4.0-10.0)
[2020-12-21 06:45] LABS: BLOOD UREA NITROGEN 10 MG/DL (7-18); CALCIUM LEVEL 7.8 MG/DL (8.8-10.2); CARBON DIOXIDE LEVEL 27 MEQ/L (21-32); CHLORIDE LEVEL 106 MEQ/L (98-107); CREATININE FOR GFR 0.56 MG/DL (0.55-1.30); GLOMERULAR FILTRATION RATE > 60.0 (>39); GLUCOSE, FASTING 127 MG/DL (70-100); POTASSIUM SERUM 4.1 MEQ/L (3.5-5.1); SODIUM LEVEL 139 MEQ/L (136-145)
[2020-12-21] MEDS: PANTOPRAZOLE 40MG VIAL (C9113 PER 1) IV SCH (08:36)
[2020-12-21] MEDS: KCL 10MEQ IN D5/0.45NS 1000ML 1,000 ML IV SCH ×2 (08:36→17:16)
--- NOTE | 2020-12-21 10:59 | REP ---
INDICATION: sbo. COMPARISON: Comparison is made with CT images from the previous day, December 20, 2020.. TECHNIQUE: Three views including upright PA chest and AP abdomen. FINDINGS: Upright chest radiograph shows no evidence of infiltrate or free subdiaphragmatic air. A nasogastric tube is seen in place terminating in the upper stomach. The side-hole of the NG tube appears to be in the distal esophagus. Heart is not felt to be enlarged. Supine and erect views of the abdomen show or large opaque gallstones in the right upper quadrant and sutures in the right mid abdomen from previous surgery. There are several loops of air-filled and mildly dilated small bowel persisting in the central abdomen similar to yesterday's heel brusher view. There is some formed stool in the rectum and proximal colon. No colonic distention is seen. IMPRESSION: NG tube in place. Mild small bowel obstruction pattern persists. Cholelithiasis and postoperative changes in the abdomen. No evidence of pulmonary infiltrate.. <Electronically signed by Dejon Gastelum > 12/21/20 [id number]
[2020-12-21] MEDS: KETOROLAC 30 MG/ML 1ML VIAL IV SCH ×3 (12:04→23:18)
--- NOTE | 2020-12-21 12:21 | CR ---
CONSULTATION DATE: 12/20/2020 CHIEF COMPLAINT: Small-bowel obstruction. BRIEF HISTORY OF PRESENT ILLNESS: Patient is a 70-year-old female who over the last several weeks has noticed increasing abdominal pain, discomfort. Has had some problems since her operative intervention and just finished her chemotherapy in July for her colon cancer, which was metastatic to local nodes. No distant disease had been appreciated. In any case, over the last 3-4 weeks she has had increasing abdominal discomfort and pain and had a workup and was suggested it may be her gallstones giving her pain; however, she has developed some abdominal distention, nausea, vomiting over the day of admission. She has had no fevers, no chills, no melenotic stools. Does have some mild anemia on her x-rays. MEDICAL HISTORY: Significant for: 1. History of colon cancer. 2. History of colectomy. 3. History of total vaginal hysterectomy. 4. History of seizures. 5. History of anemia. MEDICATIONS: Can be gleaned from the admission history and physical (H and P). PHYSICAL EXAMINATION: Reveals a 70-year-old female who looks stated age. HEENT: Unremarkable. NECK: Supple without adenopathy. LUNGS: Clear anteriorly. HEART: Regular. ABDOMEN: Softly distended, mildly tender. She has a very tender umbilicus with a firm nodule within the umbilicus itself. No significant guarding or rebound is appreciated. EXTREMITIES: Warm, well perfused. IMPRESSION AND PLAN: Patient has evidence of small-bowel obstruction on her x-ray. My recommendation at this time is we will see how she is doing in the morning to see if she has had any progress/resolution of her symptoms, and hopefully this is from adhesions, and we have discussed if the patient does not have continued improvement, she may need operative intervention. Concerned obviously with her disease metastatic to her lymph nodes and this firm nodule in the umbilicus and this gradual progression of her symptoms that occurred over several weeks/month, a long history, is more concerning for some sort of progression of metastatic disease, and thus at this point we will see how she does over the ensuing few days and determine our next course of action depending on her progress.
--- NOTE | 2020-12-21 12:43 | IPNPDOC ---
Text Note Date of Service The patient was seen on 12/21/20. NOTE Subjective: Patient complains of severe headache. Patient denied any fever or chills, chest pain or palpitations. Objective: GENERAL APPEARANCE: NAD HEENT: no scleral icterus, no JVD, EOMI, NG tube in place CARDIOVASCULAR: S1S2 LUNGS: CTA ABDOMEN: soft & tender around umbilicus, moderately distended MUSCULOSKELETAL: no cyanosis, no swelling INTEGUMENT: no generalized pallor NEUROLOGICAL: cranial nerve function from 2-12 intact i, follows commands, speech not dysarthric Assessment plan Patient is 70 years old female with past medical history of colon carcinoma stage III, diagnosed in 2019, status post chemotherapy and radiation presented to hospital with abdominal distention, abdominal pain and nausea. Abdominal pain/small bowel obstruction Patient was found to have on the CT scan Findings consistent with small-bowel obstruction likely at the ileocolic junction where there is focal thickening and narrowing of the distal ileum suggesting possible inflammation, scarring or neoplasm Surgical team recommended NG tube placement with low intermittent suction. N.p.o. for now Patient afebrile, normotensive, procalcitonin negative no leukocytosis I will discontinue antibiotics Colon cancer I will check CEA for colon cancer recurrence Follow-up with oncologist in the outpatient settings. Patient told me that she did not finish the course of chemotherapy Rash Resolved Normocytic anemia Most likely secondary to anemia of chronic diseases Iron is low, we will give iron supplementation after resolution of acute illness We will give iron supplementation We will check stool for occult blood B12/folate Pyuria Patient denies any burning during urination or suprapubic pain. We will not treat asymptomatic bacteriuria VS,José Miguel, I+O VS, José Miguel, I+O Laboratory Tests 12/20/20 17:00 12/21/20 05:50 Vital Signs Date Time Temp Pulse Resp B/P (MAP) Pulse Ox O2 Delivery O2 Flow Rate FiO2 12/21/20 06:00 98.8 72 18 130/81 (97) 100 Room Air I&O- Last 24 Hours up to 6 AM 12/21/20 06:00 Intake Total 1000 ml Output Total 1200 ml Balance -200 ml IVAN FLEMING DO Dec 21, 2020 12:43
[2020-12-21 13:29] LABS: FOLATE 9.2 NG/ML; VITAMIN B12 LEVEL 371 PG/ML
[2020-12-21 14:00] VITALS: BP 125/82
[2020-12-21] MEDS: ONDANSETRON 4MG/2ML VIAL IV PRN (17:15)
[2020-12-21 20:00] VITALS: BP 126/83
[2020-12-22] MEDS ORDERED: MORPHINE 2 MG/ML 1ML VIAL (J2270) IV ONE (02:45)
[2020-12-22] MEDS: KCL 10MEQ IN D5/0.45NS 1000ML 1,000 ML IV SCH ×3 (02:56→23:49)
[2020-12-22] MEDS: KETOROLAC 30 MG/ML 1ML VIAL IV SCH ×4 (05:52→23:49)
[2020-12-22 06:00] VITALS: BP 137/79
[2020-12-22 06:28] LABS: HEMATOCRIT 29.6 % (36.0-47.0); HEMOGLOBIN 9.5 g/dl (12.0-15.5); MEAN CORPUSCULAR HEMOGLOBIN 28.6 pg (27.0-33.0); MEAN CORPUSCULAR HGB CONC 32.1 g/dl (32.0-36.5); MEAN CORPUSCULAR VOLUME 89.2 fl (80.0-96.0); PLATELET COUNT, AUTOMATED 321 10^3/uL (150-450); RED BLOOD COUNT 3.32 10^6/uL (4.00-5.40); WHITE BLOOD COUNT 7.6 10^3/uL (4.0-10.0)
[2020-12-22 06:55] LABS: BLOOD UREA NITROGEN 6 MG/DL (7-18); CALCIUM LEVEL 8.4 MG/DL (8.8-10.2); CARBON DIOXIDE LEVEL 27 MEQ/L (21-32); CHLORIDE LEVEL 107 MEQ/L (98-107); CREATININE FOR GFR 0.54 MG/DL (0.55-1.30); GLOMERULAR FILTRATION RATE > 60.0 (>39); GLUCOSE, FASTING 113 MG/DL (70-100); POTASSIUM SERUM 3.9 MEQ/L (3.5-5.1); SODIUM LEVEL 142 MEQ/L (136-145)
[2020-12-22] MEDS: PANTOPRAZOLE 40MG VIAL (C9113 PER 1) IV SCH (08:28)
--- NOTE | 2020-12-22 08:36 | REP ---
INDICATION: ffup sbo. COMPARISON: Comparison radiographs are from the previous day 21 December 2020.. TECHNIQUE: KUB. FINDINGS: Single supine view the abdomen demonstrates a nasogastric tube tip just inside the left upper quadrant of the abdomen. There are metallic suture line is visible in the right mid abdomen consistent with previous bowel surgery. There are large opaque biliary calculi in the right upper quadrant consistent with cholelithiasis. Bowel gas pattern is normal. Psoas margins and flank stripes are intact. No mass or organomegaly is seen. There is a mild levoconvex curve in the lumbar spine as before. IMPRESSION: Unremarkable/improved bowel gas pattern. NG tube just inside left upper quadrant. Cholelithiasis. Surgical sutures right mid abdomen. <Electronically signed by Dejon Gastelum > 12/22/20 [id number]
--- NOTE | 2020-12-22 11:09 | IPNPDOC ---
Text Note Date of Service The patient was seen on 12/22/20. NOTE Subjective: No any acute events overnight. Patient stated that nausea resolved. NG tube discharge around 100 cc over 12 hours Objective: GENERAL APPEARANCE: NAD HEENT: no scleral icterus, no JVD, EOMI, NG tube in place CARDIOVASCULAR: S1S2 LUNGS: CTA ABDOMEN: soft & tender around umbilicus, moderately distended MUSCULOSKELETAL: no cyanosis, no swelling INTEGUMENT: no generalized pallor NEUROLOGICAL: cranial nerve function from 2-12 intact i, follows commands, speech not dysarthric Assessment plan Patient is 70 years old female with past medical history of colon carcinoma stage III, diagnosed in 2019, status post chemotherapy and radiation presented to hospital with abdominal distention, abdominal pain and nausea. Abdominal pain/small bowel obstruction Patient was found to have on the CT scan Findings consistent with small-bowel obstruction likely at the ileocolic junction where there is focal thickening and narrowing of the distal ileum suggesting possible inflammation, scarring or neoplasm Surgical team recommended NG tube placement with low intermittent suction. N.p.o. for now Abdominal x-ray shows Unremarkable/improved bowel gas pattern. NG tube just inside left upper quadrant. Colon cancer CEA 3.1 Follow-up with oncologist in the outpatient settings. Patient told me that she did not finish the course of chemotherapy Rash Resolved Normocytic anemia Most likely secondary to anemia of chronic diseases Iron is low, we will give iron supplementation after resolution of acute illness We will check stool for occult blood B12/folate wnl Pyuria Patient denies any burning during urination or suprapubic pain. We will not treat asymptomatic bacteriuria VS,Debie, I+O VS, Fishbone, I+O Laboratory Tests 12/22/20 06:02 Vital Signs Date Time Temp Pulse Resp B/P (MAP) Pulse Ox O2 Delivery O2 Flow Rate FiO2 12/22/20 06:00 97.3 78 19 137/79 (98) 98 Room Air I&O- Last 24 Hours up to 6 AM 12/22/20 06:00 Intake Total 2490 ml Output Total 1225 ml Balance 1265 ml IVAN FLEMING DO Dec 22, 2020 11:09
--- NOTE | 2020-12-22 11:30 | IPNPDOC ---
Text Note Date of Service The patient was seen on 12/22/20. NOTE Patient seen sitting up on the chair reports her abdomen feels better though she is complaining of headache/sinus discomfort from the nasogastric tube. Overnight the nasogastric tube was not putting up that much. She denies any nausea, reports bloating somewhat better. Denies having any flatus nor any bowel movements. Vital signs stable I/O NG tube 125 mL overnight Urine output 500 mL Examination Patient seen sitting up in the chair looks very comfortable NG tube in place slightly maroon-colored drainage in the tubing, light brownish colored drainage in the canister Abdomen is relatively flat, soft. Mildly distended on the lower abdomen relatively nondistended on the upper abdomen. No noticeable hernia. She is tender at the umbilicus with there is a small nodule at the bottom of the umbilical cleft. Labs reviewed No leukocytosis Normal electrolytes KUB Bowel gas pattern is improved with most of the air located within the colon now Impression and plan Patient with a history of ascending colon cancer status post laparoscopic right colectomy Small bowel obstruction may be related to the ileocolic anastomosis level Clinically seems to be improving, she is relatively flat and nondistended. Bowel gas pattern x-ray shows improvement from that of yesterday. I will have the tube clamped and see if she tolerates this. If she does this will be remov ed and we will start her on clear liquids, maybe add some laxatives afterwards. VS,Fishbone, I+O VS, Fishbone, I+O Laboratory Tests 12/22/20 06:02 Vital Signs Date Time Temp Pulse Resp B/P (MAP) Pulse Ox O2 Delivery O2 Flow Rate FiO2 12/22/20 06:00 97.3 78 19 137/79 (98) 98 Room Air I&O- Last 24 Hours up to 6 AM 12/22/20 06:00 Intake Total 2490 ml Output Total 1225 ml Balance 1265 ml KAMINI ROMERO MD Dec 22, 2020 11:30
[2020-12-22] MEDS: HEPARIN SOD (PORCINE) 5000UNITS/ML 1ML VIAL/SYRINGE SQ SCH ×2 (13:11→21:09)
[2020-12-22 14:00] VITALS: BP 125/76
[2020-12-22 22:00] VITALS: BP 125/73
[2020-12-23] MEDS: KETOROLAC 30 MG/ML 1ML VIAL IV SCH ×4 (05:57→23:06)
[2020-12-23 06:00] VITALS: BP 140/84
[2020-12-23 06:37] LABS: HEMATOCRIT 28.1 % (36.0-47.0); HEMOGLOBIN 8.9 g/dl (12.0-15.5); MEAN CORPUSCULAR HEMOGLOBIN 28.3 pg (27.0-33.0); MEAN CORPUSCULAR HGB CONC 31.7 g/dl (32.0-36.5); MEAN CORPUSCULAR VOLUME 89.2 fl (80.0-96.0); PLATELET COUNT, AUTOMATED 301 10^3/uL (150-450); RED BLOOD COUNT 3.15 10^6/uL (4.00-5.40)
[2020-12-23 07:05] LABS: BLOOD UREA NITROGEN 5 MG/DL (7-18); CALCIUM LEVEL 8.3 MG/DL (8.8-10.2); CARBON DIOXIDE LEVEL 29 MEQ/L (21-32); CHLORIDE LEVEL 108 MEQ/L (98-107); GLOMERULAR FILTRATION RATE > 60.0 (>39); GLUCOSE, FASTING 85 MG/DL (70-100); SODIUM LEVEL 141 MEQ/L (136-145)
--- NOTE | 2020-12-23 08:13 | REP ---
INDICATION: ffup sbo. COMPARISON: Comparison KUB December 22, 2020.. TECHNIQUE: Supine film of the abdomen. FINDINGS: NG tube is seen terminating in the gastric fundus. Opaque gallstones are noted on the right. There are right mid abdominal surgical suture lines. There are two or 3 loops of air-filled nondilated small bowel in the right lower abdomen. Some air is seen in the left colon. No significant change from the previous day's study. IMPRESSION: No radiographic evidence of obstruction. NG tube in the gastric fundus. Cholelithiasis. <Electronically signed by Dejon Gastelum > 12/23/20 [id number]
[2020-12-23] MEDS: PANTOPRAZOLE 40MG VIAL (C9113 PER 1) IV SCH (08:46)
[2020-12-23] MEDS: KCL 10MEQ IN D5/0.45NS 1000ML 1,000 ML IV SCH ×2 (08:46→20:15)
[2020-12-23] MEDS: MIRALAX *UNIT DOSE* 17GM PACKET PO SCH (08:46)
[2020-12-23] MEDS: HEPARIN SOD (PORCINE) 5000UNITS/ML 1ML VIAL/SYRINGE SQ SCH (08:47)
--- NOTE | 2020-12-23 11:27 | IPNPDOC ---
Text Note Date of Service The patient was seen on 12/23/20. NOTE Patient feels better today. She reports she has a moderate amount of bowel m ovement. Nurse reports slightly ricki/black stool and this was FOBT positive. The NG tube has some slight coffee-ground color. Vital signs stable I/O NG tube 150 mils overnight Examination patient seen laying comfortably in bed NG tube in place, coffee-ground color on the tube, brownish drainage in the canister Abdomen is soft, nondistended nontender. Mild tenderness at the umbilicus. Impression and plan Small bowel obstruction seems to be resolving by itself. She actually was ready to have a nasogastric tube removed last night but she was slightly afraid and she was complaining of some vague abdominal pain but no nausea or vomiting. She had a bowel movement this morning which seems to be mildly bloody can be from the nasogastric tube irritation of the stomach may be from a lower GI source. We will need to continue to watch this for now. Interestingly had some conversation with her with regards to her cancer, reminded her that she would need surveillance colonoscopy in terms of her cancer but According to her and her mindset she would not really want any further surgery or chemotherapy if the cancer recurs so she is asking whether she really does need to have surveillance colonoscopy. I told her that as long as she knows what the implications of that and of missing early recurrence or new metastasis is that she could still choose not to have [address] done. Dr. Winters will be back tomorrow to follow-up on her. VS,José Miguel, I+O VS, Fishelysiae, I+O Laboratory Tests 12/23/20 05:59 Vital Signs Date Time Temp Pulse Resp B/P (MAP) Pulse Ox O2 Delivery O2 Flow Rate FiO2 12/23/20 06:00 97.4 74 17 140/84 (102) 97 Room Air I&O- Last 24 Hours up to 6 AM 12/23/20 06:00 Intake Total 1600 ml Output Total 1975 ml Balance -375 ml KAMINI ROMERO MD Dec 23, 2020 11:27
[2020-12-23 14:00] VITALS: BP 131/80
--- NOTE | 2020-12-23 14:48 | IPNPDOC ---
Text Note Date of Service The patient was seen on 12/23/20. NOTE Subjective: No any acute events overnight. Patient stated that she required bowel movements overnight, no nausea or vomiting Objective: GENERAL APPEARANCE: NAD HEENT: no scleral icterus, no JVD, EOMI, NG tube in place CARDIOVASCULAR: S1S2 LUNGS: CTA ABDOMEN: soft & tender around umbilicus, moderately distended MUSCULOSKELETAL: no cyanosis, no swelling INTEGUMENT: no generalized pallor NEUROLOGICAL: cranial nerve function from 2-12 intact i, follows commands, speech not dysarthric Assessment plan Patient is 70 years old female with past medical history of colon carcinoma stage III, diagnosed in 2019, status post chemotherapy and radiation presented to hospital with abdominal distention, abdominal pain and nausea. Abdominal pain/small bowel obstruction Patient was found to have on the CT scan Findings consistent with small-bowel obstruction likely at the ileocolic junction where there is focal thickening and narrowing of the distal ileum suggesting possible inflammation, scarring or neoplasm Resolved today. NG tube was removed Stool was positive for occult blood. Patient will need to follow-up with GI team for colonoscopy which supposed to be done after 1 year after surgery Clear liquid diet Colon cancer CEA 3.1 Follow-up with oncologist in the outpatient settings. Patient told me that she did not finish the course of chemotherapy Rash Resolved Normocytic anemia Most likely secondary to anemia of chronic diseases Iron is low, we will give iron supplementation after resolution of acute illness B12/folate wnl Pyuria Patient denies any burning during urination or suprapubic pain. We will not treat asymptomatic bacteriuria VS,Fishbone, I+O VS, Fishbone, I+O Laboratory Tests 12/23/20 05:59 Vital Signs Date Time Temp Pulse Resp B/P (MAP) Pulse Ox O2 Delivery O2 Flow Rate FiO2 12/23/20 06:00 97.4 74 17 140/84 (102) 97 Room Air I&O- Last 24 Hours up to 6 AM 12/23/20 06:00 Intake Total 1600 ml Output Total 1975 ml Balance -375 ml IVAN FLEMING DO Dec 23, 2020 14:48
[2020-12-23] MEDS: IRON POLYSAC (NIFEREX) 150 MG CAP PO SCH (20:15)
[2020-12-23 22:00] VITALS: BP 143/77
[2020-12-24] MEDS: KCL 10MEQ IN D5/0.45NS 1000ML 1,000 ML IV SCH (05:13)
[2020-12-24] MEDS: KETOROLAC 30 MG/ML 1ML VIAL IV SCH ×2 (05:13→12:26)
[2020-12-24 06:00] VITALS: BP 126/77
[2020-12-24 06:31] LABS: HEMATOCRIT 26.2 % (36.0-47.0); HEMOGLOBIN 8.4 g/dl (12.0-15.5); MEAN CORPUSCULAR HEMOGLOBIN 28.6 pg (27.0-33.0); MEAN CORPUSCULAR HGB CONC 32.1 g/dl (32.0-36.5); MEAN CORPUSCULAR VOLUME 89.1 fl (80.0-96.0); PLATELET COUNT, AUTOMATED 294 10^3/uL (150-450); RED BLOOD COUNT 2.94 10^6/uL (4.00-5.40); WHITE BLOOD COUNT 5.4 10^3/uL (4.0-10.0)
[2020-12-24 06:56] LABS: BLOOD UREA NITROGEN 5 MG/DL (7-18); CALCIUM LEVEL 8.1 MG/DL (8.8-10.2); CARBON DIOXIDE LEVEL 28 MEQ/L (21-32); CHLORIDE LEVEL 107 MEQ/L (98-107); CREATININE FOR GFR 0.54 MG/DL (0.55-1.30); GLOMERULAR FILTRATION RATE > 60.0 (>39); GLUCOSE, FASTING 97 MG/DL (70-100); POTASSIUM SERUM 4.1 MEQ/L (3.5-5.1); SODIUM LEVEL 140 MEQ/L (136-145)
--- NOTE | 2020-12-24 08:04 | REP ---
INDICATION: NG TUBE PLACEMENT. COMPARISON: Comparison chest x-ray July 06, 2017. TECHNIQUE: Portable upright AP chest radiograph. FINDINGS: The lungs are well inflated and clear. NG tube enters the left upper quadrant of the abdomen. Borderline heart size unchanged. EKG electrodes are noted. No acute bony abnormality is seen.. IMPRESSION: NG tube in place. Borderline heart size. Otherwise no acute disease.. <Electronically signed by Dejon Gastelum > 12/24/20 0801
[2020-12-24] MEDS: MIRALAX *UNIT DOSE* 17GM PACKET PO SCH (08:44)
[2020-12-24] MEDS: IRON POLYSAC (NIFEREX) 150 MG CAP PO SCH ×2 (08:45→18:47)
[2020-12-24] MEDS: PANTOPRAZOLE 40MG VIAL (C9113 PER 1) IV SCH (08:45)
--- NOTE | 2020-12-24 13:12 | IPNPDOC ---
Text Note Date of Service The patient was seen on 12/24/20. NOTE General surgery. Dr. Winters The patient is a 70-year-old female with history of colon cancer metastatic to local nodes status post chemotherapy admitted 12/20/2020 with small bowel obstruction. The patient has had NG tube removed. She is tolerating clear liquids. She rep orts having coffee-ground appearing diarrhea overnight, 5 bowel movements recorded. 1 bowel movement so far today which she states has been more normal appearing, greenish in color. 97.1, heart rate 72, respiratory rate 16, blood pressure 126/77, 98% room air. Awake and alert, resting in bed S1-S2 regular rate rhythm Lungs clear to auscultation Abdomen with a firm nodule palpable at the umbilicus with slight tenderness, otherwise abdomen soft and nontender. No guarding or rebound. Hemoglobin 8.4 compared with 8.9 yesterday Assessment/plan History of colon cancer metastatic to local nodes status post chemotherapy admitted 12/20/2020 with small bowel obstruction. The patient is reviewed and examined as per Dr. Winters this morning. Plan to discontinue IV fluids. Advance to regular diet. Bleeding is likely secondary to upper GI etiology likely secondary to prolonged NG tube placement. This seems to be clearing up this afternoon. Plan to advance to regular diet and possibly discharge tomorrow. Plan for follow-up with oncology as outpatient. VS,Luis Albertobone, I+O VS, Fishbone, I+O Laboratory Tests 12/24/20 06:05 Vital Signs Date Time Temp Pulse Resp B/P (MAP) Pulse Ox O2 Delivery O2 Flow Rate FiO2 12/24/20 06:00 97.1 72 16 126/77 (93) 98 Room Air I&O- Last 24 Hours up to 6 AM 12/24/20 06:00 Intake Total 480 ml Output Total 1750 ml Balance -1270 ml Pau Ruiz Dec 24, 2020 13:12
[2020-12-24 14:08] LABS: Lyme Disease IgG Ab 18 kDa Ban Present (.); Lyme Disease IgG Ab 23 kDa Ban Present (.); Lyme Disease IgG Ab 28 kDa Ban Present (.); Lyme Disease IgG Ab 30 kDa Ban Absent (.); Lyme Disease IgG Ab 39 kDa Ban Present (.); Lyme Disease IgG Ab 41 kDa Ban Present (.); Lyme Disease IgG Ab 45 kDa Ban Absent (.); Lyme Disease IgG Ab 58 kDa Ban Present (.); Lyme Disease IgG Ab 66 kDa Ban Present (.); Lyme Disease IgG Ab 93 kDa Ban Absent (.); Lyme Disease IgG West Blot Int Positive (.); Lyme Disease IgG/IgM Antibodie 2.22 ISR (0.00-0.90); Lyme Disease IgM Ab 23 kDa Ban Present (.); Lyme Disease IgM Ab 39 kDa Ban Present (.); Lyme Disease IgM Ab 41 kDa Ban Absent (.); Lyme Disease IgM Ab Quantitati 1.05 index (0.00-0.79); Lyme Disease IgM West Blot Int Positive (.)
--- NOTE | 2020-12-24 14:26 | IPNPDOC ---
Text Note Date of Service The patient was seen on 12/24/20. NOTE Subjective: Patient had bowel movements with maroon stool yesterday evening and some abdominal pain. No fever or chills Objective: GENERAL APPEARANCE: NAD HEENT: no scleral icterus, no JVD, EOMI CARDIOVASCULAR: S1S2 LUNGS: CTA ABDOMEN: soft & tender around umbilicus, mildly distended MUSCULOSKELETAL: no cyanosis, no swelling INTEGUMENT: no generalized pallor NEUROLOGICAL: cranial nerve function from 2-12 intact i, follows commands, speech not dysarthric Assessment plan Patient is 70 years old female with past medical history of colon carcinoma stage III, diagnosed in 2019, status post chemotherapy and radiation presented to hospital with abdominal distention, abdominal pain and nausea. Abdominal pain/small bowel obstruction Patient was found to have on the CT scan Findings consistent with small-bowel obstruction likely at the ileocolic junction where there is focal thickening and narrowing of the distal ileum suggesting possible inflammation, scarring or nevaeh plasm Diet was upgraded to regular by surgical team Stool was positive for occult blood. Blood in the stool most likely due to prolonged NG tube placement Patient will need to follow-up with GI team for colonoscopy which supposed to be done after 1 year after surgery Colon cancer CEA 3.1 Follow-up with oncologist in the outpatient settings. Patient told me that she did not finish the course of chemotherapy Rash/Lyme disease Resolved Serology came back positive for Lyme disease. I will start doxycycline p.o. 100 mg twice daily Normocytic anemia Most likely secondary to anemia of chronic diseases Iron is low Iron supplementation B12/folate wnl Pyuria Patient denies any burning during urination or suprapubic pain. We will not treat asymptomatic bacteriuria VS,José Miguel, I+O VS, Debie, I+O Laboratory Tests 12/24/20 06:05 Vital Signs Date Time Temp Pulse Resp B/P (MAP) Pulse Ox O2 Delivery O2 Flow Rate FiO2 12/24/20 06:00 97.1 72 16 126/77 (93) 98 Room Air I&O- Last 24 Hours up to 6 AM 12/24/20 06:00 Intake Total 480 ml Output Total 1750 ml Balance -1270 ml IVAN FLEMING DO Dec 24, 2020 14:26
[2020-12-24] MEDS: DOXYCYCLINE HYCLATE 100MG TABLET PO SCH ×2 (15:11→21:15)
[2020-12-24 16:00] VITALS: BP 131/77
[2020-12-24] MEDS ORDERED: IRON POLYSAC (NIFEREX) 150 MG CAP PO SCH (21:00)
[2020-12-24 22:00] VITALS: BP 129/78
[2020-12-25 05:51] LABS: HEMATOCRIT 25.8 % (36.0-47.0); HEMOGLOBIN 8.2 g/dl (12.0-15.5); MEAN CORPUSCULAR HEMOGLOBIN 28.3 pg (27.0-33.0); MEAN CORPUSCULAR HGB CONC 31.8 g/dl (32.0-36.5); PLATELET COUNT, AUTOMATED 329 10^3/uL (150-450); WHITE BLOOD COUNT 5.9 10^3/uL (4.0-10.0)
[2020-12-25 06:00] VITALS: BP 127/78
[2020-12-25 06:19] LABS: BLOOD UREA NITROGEN 15 MG/DL (7-18); CALCIUM LEVEL 8.6 MG/DL (8.8-10.2); CARBON DIOXIDE LEVEL 29 MEQ/L (21-32); CHLORIDE LEVEL 110 MEQ/L (98-107); CREATININE FOR GFR 0.62 MG/DL (0.55-1.30); GLOMERULAR FILTRATION RATE > 60.0 (>39); GLUCOSE, FASTING 86 MG/DL (70-100); POTASSIUM SERUM 4.1 MEQ/L (3.5-5.1); SODIUM LEVEL 143 MEQ/L (136-145)
[2020-12-25] MEDS: IRON POLYSAC (NIFEREX) 150 MG CAP PO SCH ×2 (06:30→19:41)
[2020-12-25] MEDS: traMADol 50 MG TAB PO PRN ×2 (06:31→21:47)
[2020-12-25] MEDS: MIRALAX *UNIT DOSE* 17GM PACKET PO SCH (09:00)
[2020-12-25] MEDS: DOXYCYCLINE HYCLATE 100MG TABLET PO SCH ×2 (09:43→21:46)
[2020-12-25] MEDS: PANTOPRAZOLE 40MG TAB (PROTONIX) PO SCH (09:43)
[2020-12-25] MEDS: GASTROGRAFIN SOLUTION 30ML PO SCH ×2 (09:44→10:06)
[2020-12-25] MEDS ORDERED: ISOVUE-370 76% 100ML VIAL As Ordered ONE (09:58)
--- NOTE | 2020-12-25 12:08 | REP ---
INDICATION: abd pain ? malignant ascites. COMPARISON: 12/20/2020, 09/27/2020 CT; 11/30/2020 GB ultrasound TECHNIQUE: Oral Gastrografin mixture per our bowel contrast protocol followed by bolus 100 mL Isovue 370 scanning through the abdomen and pelvis with coronal and sagittal reconstructions. FINDINGS: CT abdomen/pelvis bladder is nearly empty but no stone, mass or other significant finding. Free fluid in the deep pelvis is again seen: Some minimal the linear and dependent atelectatic changes the again noted. No effusion infiltrate nodule or mass. Heart is unchanged. There is no pericardial thickening or effusion. No hiatal hernia. There are 3 separate nodular rim enhancing lesions in the liver in these are unchanged from multiple prior studies consistent with the known a benign hemangiomas. Small amount of ascites adjacent to the liver. There is a sub cm subcapsular low-density focus with enhancing nodular rim, posteriorly in right hepatic lobe at the dome of the liver. No new lesions. Spleen was unremarkable. The gallbladder shows multiple large rim calcified gallstones up to 14 mm and unchanged. There are surgical clips and changes at the ileocolic anastomosis in the right upper quadrant/right mid abdomen with infiltration of the pericolonic fat. Trace fluid in this region and some small lymph nodes are also present. Pancreas showed no acute finding or interval change. No calcifications in the common duct in kory hepatis or pancreatic head. Abdominal aorta unremarkable no pathologic sized periaortic adenopathy. Mesenteric areas showed few scattered nodes. Many small bowel loops are fluid-filled and some are dilated suggesting ileus or partial small bowel obstruction. Oral contrast does reach to the distal but not terminal ileum nor extending into the colon. Transverse and left colon were unremarkable. The proximal sigmoid shows fluid filled, mildly distended area and then a short zone of the stricture or spasm seen on image 106 for length of 4 cm, likely spasm as this was not present on the last exam 5 days ago. No free air/perforation. Kidneys show function without obstruction stone or mass. No definite ureteral dilatation or stone and no renal calculus. IMPRESSION: 1. At the ileocolic anastomosis there are inflammatory changes, some nodes and some thickening of the portion of the terminal ileum. No definite abscess with drainable fluid but infection/inflammatory change and/or mass with adenopathy suspected. 2. Small bowel loops mildly distended with some air-fluid levels and contrast reaching the mid to distal ileum but not the ileocolic anastomosis. Small bowel caliber slightly less than on the previous study, favoring ileus 3. Fatty infiltration liver with 3 prominent nodular rim enhancing lesions consistent with known hemangiomas. A tiny 4th lesion at the dome of the liver, less a cm is also noted with rim enhancement, all stable. No new liver findings. Abdominal and pelvic ascites similar to the previous study. No renal, ureteral or bladder stone. 4. Rim calcified gallstones up to 14 mm unchanged. Gallbladder and pancreas stable. <Electronically signed by Elvis Begum > 12/25/20 [id number]
--- NOTE | 2020-12-25 12:50 | IPNPDOC ---
Text Note Date of Service The patient was seen on 12/25/20. NOTE Subjective: Patient complains of lower abdominal pain, intermittent 5 out of 10 and multiple episodes of diarrhea Objective: GENERAL APPEARANCE: NAD HEENT: no scleral icterus, no JVD, EOMI CARDIOVASCULAR: S1S2 LUNGS: CTA ABDOMEN: soft & tender around umbilicus and lower part of the abdomen, not distended MUSCULOSKELETAL: no cyanosis, no swelling INTEGUMENT: no generalized pallor NEUROLOGICAL: cranial nerve function from 2-12 intact i, follows commands, speech not dysarthric Assessment plan Patient is 70 years old female with past medical history of colon carcinoma st age III, diagnosed in 2019, status post chemotherapy and radiation presented to hospital with abdominal distention, abdominal pain and nausea. Abdominal pain/small bowel obstruction Patient was found to have on the CT scan Findings consistent with small-bowel obstruction likely at the ileocolic junction where there is focal thickening and narrowing of the distal ileum suggesting possible inflammation, scarring or neoplasm Diet was upgraded to regular by surgical team Stool was positive for occult blood. Blood in the stool most likely due to prolonged NG tube placement Patient will need to follow-up with GI team for colonoscopy which supposed to be done after 1 year after surgery Today surgical team ordered CT scan due to abdominal pain. The CT scan shows At the ileocolic anastomosis there are inflammatory changes, some nodes and some thickening of the portion of the terminal ileum. No definite abscess with drainablefluid but infection/inflammatory change and/or mass with adenopathy suspected Abdominal and pelvic ascites similar to the previous study Colon cancer CEA 3.1 Follow-up with oncologist in the outpatient settings. Patient told me that she did not finish the course of chemotherapy Rash/Lyme disease Rash resolved Serology came back positive for Lyme disease. Continue doxycycline p.o. 100 mg twice daily Normocytic anemia Most likely secondary to anemia of chronic diseases Iron is low Iron supplementation B12/folate wnl Pyuria Patient denies any burning during urination or suprapubic pain. We will not treat asymptomatic bacteriuria VS,Fishbone, I+O VS, Fishbone, I+O Laboratory Tests 12/25/20 05:40 Vital Signs Date Time Temp Pulse Resp B/P (MAP) Pulse Ox O2 Delivery O2 Flow Rate FiO2 12/25/20 07:58 20 12/25/20 06:00 97.5 87 127/78 (94) 96 Room Air I&O- Last 24 Hours up to 6 AM 12/25/20 05:59 Intake Total 270 ml Output Total 1350 ml Balance -1080 ml IVAN FLEMING DO Dec 25, 2020 12:50
[2020-12-25 14:00] VITALS: BP 146/85
[2020-12-25 20:00] VITALS: BP 140/82
[2020-12-26 06:00] VITALS: BP 135/74
[2020-12-26] MEDS: IRON POLYSAC (NIFEREX) 150 MG CAP PO SCH ×2 (06:06→18:28)
[2020-12-26] MEDS: traMADol 50 MG TAB PO PRN ×3 (06:07→20:55)
[2020-12-26 06:32] LABS: HEMATOCRIT 24.9 % (36.0-47.0); MEAN CORPUSCULAR HEMOGLOBIN 28.3 pg (27.0-33.0); MEAN CORPUSCULAR HGB CONC 32.1 g/dl (32.0-36.5); PLATELET COUNT, AUTOMATED 317 10^3/uL (150-450); RED BLOOD COUNT 2.83 10^6/uL (4.00-5.40); WHITE BLOOD COUNT 5.8 10^3/uL (4.0-10.0)
[2020-12-26 06:55] LABS: BLOOD UREA NITROGEN 18 MG/DL (7-18); CALCIUM LEVEL 8.6 MG/DL (8.8-10.2); CARBON DIOXIDE LEVEL 30 MEQ/L (21-32); CHLORIDE LEVEL 108 MEQ/L (98-107); CREATININE FOR GFR 0.55 MG/DL (0.55-1.30); GLOMERULAR FILTRATION RATE > 60.0 (>39); GLUCOSE, FASTING 81 MG/DL (70-100); POTASSIUM SERUM 4.5 MEQ/L (3.5-5.1); SODIUM LEVEL 141 MEQ/L (136-145)
[2020-12-26] MEDS: ONDANSETRON 4MG/2ML VIAL IV PRN (08:32)
[2020-12-26] MEDS: MIRALAX *UNIT DOSE* 17GM PACKET PO SCH (09:00)
[2020-12-26] MEDS: PANTOPRAZOLE 40MG TAB (PROTONIX) PO SCH (09:59)
[2020-12-26] MEDS: DOXYCYCLINE HYCLATE 100MG TABLET PO SCH ×2 (09:59→20:54)
[2020-12-26] MEDS ORDERED: LIDOCAINE 1% MDV 20ML VIAL As Ordered ONE (11:58)
[2020-12-26 14:00] VITALS: BP 120/68
--- NOTE | 2020-12-26 14:11 | IPNPDOC ---
Text Note Date of Service The patient was seen on 12/26/20. NOTE Subjective: Patient continues to complain of lower abdominal pain and bowel m ovements with maroon stool. I talked to the patient about colonoscopy and endoscopy. Patient firmly stated that she does not want colonoscopy and endoscopy and she does not want chemotherapy and radiation for possible colon cancer recurrence Objective: GENERAL APPEARANCE: NAD HEENT: no scleral icterus, no JVD, EOMI CARDIOVASCULAR: S1S2 LUNGS: CTA ABDOMEN: soft & tender around umbilicus and lower part of the abdomen, not distended MUSCULOSKELETAL: no cyanosis, no swelling INTEGUMENT: no generalized pallor NEUROLOGICAL: cranial nerve function from 2-12 intact i, follows commands, speech not dysarthric Assessment plan Patient is 70 years old female with past medical history of colon carcinoma stage III, diagnosed in 2019, status post chemotherapy and radiation presented to hospital with abdominal distention, abdominal pain and nausea. Abdominal pain/small bowel obstruction Patient was found to have on the CT scan Findings consistent with small-bowel obstruction likely at the ileocolic junction where there is focal thickening and narrowing of the distal ileum suggesting possible inflammation, scarring or neoplasm Diet was upgraded to regular by surgical team Stool was positive for occult blood. Blood in the stool most likely due to prolonged NG tube placement Patient will need to follow-up with GI team for colonoscopy which supposed to be done after 1 year after surgery surgical team ordered CT scan due to abdominal pain. The CT scan shows At the ileocolic anastomosis there are inflammatory changes, some nodes and some thickening of the portion of the terminal ileum. No definite abscess with drainablefluid but infection/inflammatory change and/or mass with adenopathy suspected Abdominal and pelvic ascites similar to the previous study Dr. Winters recommended to proceed with lymph node biopsy. Colon cancer CEA 3.1 Follow-up with oncologist in the outpatient settings. Patient told me that she did not finish the course of chemotherapy Rash/Lyme disease Rash resolved Serology came back positive for Lyme disease. Continue doxycycline p.o. 100 mg twice daily Normocytic anemia/ blood loss anemia secondary to GI bleed Most likely secondary to anemia of chronic diseases with blood loss anemia secondary to GI bleed Iron is low Iron supplementation B12/folate wnl Pyuria Patient denies any burning during urination or suprapubic pain. We will not treat asymptomatic bacteriuria VS,Fishbone, I+O VS, Fishbone, I+O Laboratory Tests 12/26/20 06:00 Vital Signs Date Time Temp Pulse Resp B/P (MAP) Pulse Ox O2 Delivery O2 Flow Rate FiO2 12/26/20 12:15 65 16 99 Room Air 12/26/20 11:43 98.2 12/26/20 06:00 135/74 (94) I&O- Last 24 Hours up to 6 AM 12/26/20 06:00 Intake Total 1420 ml Output Total 1300 ml Balance 120 ml IVAN FLEMING DO Dec 26, 2020 14:11
[2020-12-26] MEDS ORDERED: ONDANSETRON 4MG/2ML VIAL IV PRN (14:15)
[2020-12-26 14:53] VITALS: BP 107/63
[2020-12-26 22:00] VITALS: BP 130/71
[2020-12-27] VITALS (7 sets, daily range): BP systolic 105–132; BP diastolic 64–77
[2020-12-27] MEDS: IRON POLYSAC (NIFEREX) 150 MG CAP PO SCH (06:16)
[2020-12-27] MEDS: traMADol 50 MG TAB PO PRN ×2 (06:16→12:37)
[2020-12-27 06:19] LABS: HEMATOCRIT 24.6 % (36.0-47.0); HEMOGLOBIN 7.8 g/dl (12.0-15.5); MEAN CORPUSCULAR HEMOGLOBIN 28.4 pg (27.0-33.0); MEAN CORPUSCULAR HGB CONC 31.7 g/dl (32.0-36.5); MEAN CORPUSCULAR VOLUME 89.5 fl (80.0-96.0); PLATELET COUNT, AUTOMATED 328 10^3/uL (150-450); RED BLOOD COUNT 2.75 10^6/uL (4.00-5.40); WHITE BLOOD COUNT 6.8 10^3/uL (4.0-10.0)
[2020-12-27 06:45] LABS: BLOOD UREA NITROGEN 23 MG/DL (7-18); CALCIUM LEVEL 8.4 MG/DL (8.8-10.2); CARBON DIOXIDE LEVEL 32 MEQ/L (21-32); CHLORIDE LEVEL 106 MEQ/L (98-107); CREATININE FOR GFR 0.54 MG/DL (0.55-1.30); GLOMERULAR FILTRATION RATE > 60.0 (>39); GLUCOSE, FASTING 83 MG/DL (70-100); SODIUM LEVEL 140 MEQ/L (136-145)
--- NOTE | 2020-12-27 07:54 | REP ---
INDICATION: biopsy right colon nodes. COMPARISON: None. TECHNIQUE: Performed under the direct supervision of Dr. Gastelum. The patient has a history of nodes near the ileocolic anastomosis seen on a previous CT scan dated 12/25/2020. The risks and benefits of the procedure were explained to the patient and informed consent was obtained. The nodes near the ileocolic anastomosis localized using CT guidance. The skin was prepped and draped in a sterile fashion. 1% lidocaine was used as local anesthetic. Using CT guidance a 19/20 gauge coaxial needle biopsy system was inserted and advanced to the nodes. Five core biopsy samples were obtained and sent to the lab for analysis. The patient tolerated the procedure well and there were no immediate complications. After the appropriate amount to monitor convalescence the patient was discharged from the department. FINDINGS: None IMPRESSION: CT-guided ileocolic anastomosis node biopsy. <Electronically signed by Ángel Mendoza > 12/26/20 9743 <Electronically signed by Dejon Gastelum > 12/27/20 [id number]
[2020-12-27] MEDS: MIRALAX *UNIT DOSE* 17GM PACKET PO SCH (09:00)
[2020-12-27] MEDS ORDERED: IRON1TAB2 PO (10:08)
[2020-12-27] MEDS ORDERED: ONDA4TAB6 PO (10:08)
[2020-12-27] MEDS ORDERED: PANT40TA29 PO (10:08)
[2020-12-27] MEDS ORDERED: TRAM50TA2 PO (10:08)
[2020-12-27] MEDS ORDERED: DOXY100T PO (10:08)
[2020-12-27] MEDS ORDERED: MIRA1POW3 PO (10:08)
[2020-12-27] MEDS ORDERED: TYLE650T38 PO (10:11)
[2020-12-27] MEDS ORDERED: DULC10SU2 PR (10:11)
[2020-12-27] MEDS: DOXYCYCLINE HYCLATE 100MG TABLET PO SCH (10:32)
[2020-12-27] MEDS: PANTOPRAZOLE 40MG TAB (PROTONIX) PO SCH (10:32)
--- NOTE | 2020-12-27 12:48 | IPNPDOC ---
Text Note Date of Service The patient was seen on 12/27/20. NOTE General surgery. Dr. Winters The patient is a 70-year-old female with history of colon cancer metastatic to local nodes status post chemotherapy admitted 12/20/2020 with small bowel obstruction. CT 12/25/2020 indicated inflammatory changes at the ileocolic anastomosis, some n odes and some thickening of the portion of the terminal ileum. The patient had CT-guided biopsy of right colon nodes 12/26/2020. Pathology is pending at this time. Afebrile. VSS. Awake and alert, resting in bed Hemoglobin 7.8 compared with 8.0 yesterday. This has continued with a slow downward trend. Assessment/plan History of colon cancer metastatic to local nodes status post chemotherapy admitted 12/20/2020 with small bowel obstruction. CT 12/25/2020 indicated inflammatory changes at the ileocolic anastomosis, some nodes and some thickening of the portion of the terminal ileum. The patient had CT-guided biopsy of right colon nodes 12/26/2020. Pathology is pending at this time. The patient is reviewed and examined as per Dr. Winters this morning. Tolerating regular diet. Discussed with the patient slow downward trend of hemoglobin. This could indicate some upper GI bleeding possibly as a result of the prolonged placement of NG tube, ulcerations in that area versus lower GI possibly around the area of concern/biopsy. Reviewed and discussed options with the patient. One option would be to proceed with EGD, EGD and colonoscopy, versus transfusion and continue to monitor/await pathology results. All of these options were reviewed and discussed with the patient. The patient would like to proceed conservatively and await pathology results and does not wish to proceed with any additional procedures at this time. She is agreeable to transfusion and this is relayed to the hospitalist who will arrange for transfusion prior to her discharge today. She will follow up as outpatient with oncology for further recommendations. The patient verbalizes understanding and agreement. VS,Fishbone, I+O VS, Fishbone, I+O Laboratory Tests 12/27/20 05:45 Vital Signs Date Time Temp Pulse Resp B/P (MAP) Pulse Ox O2 Delivery O2 Flow Rate FiO2 12/27/20 12:37 16 12/27/20 12:24 97.6 68 123/70 97 Room Air I&O- Last 24 Hours up to 6 AM 7/29/21 06:00 Intake Total 490 ml Output Total 775 ml Balance -285 ml Pau Ruiz Dec 27, 2020 12:48
--- NOTE | 2020-12-27 13:38 | DS.PDOC ---
Discharge Summary General Date of Admission Dec 20, 2020 at 21:16 Date of Discharge 12/27/20 Discharge Summary PROCEDURES PERFORMED DURING STAY: [None]. ADMITTING DIAGNOSES: Abdominal pain/small bowel obstruction Colon cancer Rash/Lyme disease Normocytic anemia/ blood loss anemia secondary to GI bleed Pyuria DISCHARGE DIAGNOSES: Abdominal pain/small bowel obstruction Colon cancer Rash/Lyme disease Normocytic anemia/ blood loss anemia secondary to GI bleed Pyuria COMPLICATIONS/CHIEF COMPLAINT: SBO. HISTORY OF PRESENT ILLNESS: Lisa Georges is a 70-year-old white female with a history of anemia and colon cancer status post chemo/colon resection in 2019 who presents with worsening abdominal pain to ER today. Patient reports that she has had abdominal pain on and off throughout her cancer diagnosis and treatment, but noted a change in the past month and acutely today around 2 PM which prompted her to come to ER. She does note that her bellybutton is tender and that has developed 3 weeks ago; she reports episodic sharp bellybutton pain around 3 times a day. Patient also describes her abdominal pain as a moderate rated "brick on gut". She reports she did see her PCP outpatient about 2 weeks ago who ordered an x-ray and stool sample; she was found to have gallstones with recommendations for conservative rest. As sensations worsened, unrelieved by Tylenol; patient came to the ER today. Patient reports that she had a formed BM earlier today; she does endorse some color changes to stool in the past 3 weeks but she relates this to eating beets. Pt denies clement, sinus congestion, sore throat, productive cough, sob, palpit ations, chest pain, n/v/d, weakness, sensory changes or syncope. Patient does endorse easily fatigued in the past month more so than her state of health since her cancer treatment. Of note, CT scan positive small bowel obstruction, gallstones, focal consolidation of the ileocolic junction and hepato steatosis. Patient will be admitted for further evaluation of presenting concerns. HOSPITAL COURSE: During the hospital stay the following issues addressed Abdominal pain/small bowel obstruction Patient was found to have on the CT scan Findings consistent with small-bowel obstruction likely at the ileocolic junction where there is focal thickening and narrowing of the distal ileum suggesting possible inflammation, scarring or neoplasm, subsequently resolved after NG tube placement. NG tube was removed Diet was upgraded to regular by surgical team Stool was positive for occult blood. Blood in the stool most likely due to prolonged NG tube placement or due to progression of colon carcinoma Patient will need to follow-up with GI team for colonoscopy which supposed to be done after 1 year after surgery surgical team ordered CT scan due to abdominal pain. The CT scan shows At the ileocolic anastomosis there are inflammatory changes, some nodes and some thi ckening of the portion of the terminal ileum. No definite abscess with drainable fluid but infection/inflammatory change and/or mass with adenopathy suspected Abdominal and pelvic ascites similar to the previous study Dr. Winters recommended to proceed with lymph node biopsy. Patient refused endoscopy and colonoscopy. Patient reported that she does not want to continue chemotherapy or radiation and she would like to be discharged home and await biopsy result Colon cancer CEA 3.1 Follow-up with oncologist in the outpatient settings. Patient told me that she did not finish the course of chemotherapy Rash/Lyme disease Rash resolved Serology came back positive for Lyme disease. Continue doxycycline p.o. 100 mg twice daily Normocytic anemia/ blood loss anemia secondary to GI bleed Most likely secondary to anemia of chronic diseases with blood loss anemia secondary to GI bleed Iron is low Iron supplementation B12/folate wnl Pyuria Patient denies any burning during urination or suprapubic pain. We will not treat asymptomatic bacteriuria DISCHARGE MEDICATIONS: Please see below. ALLERGIES: Please see below. PHYSICAL EXAMINATION ON DISCHARGE: VITAL SIGNS: Please see below. GENERAL APPEARANCE: NAD HEENT: no scleral icterus, no JVD, EOMI CARDIOVASCULAR: S1S2 LUNGS: CTA ABDOMEN: soft & tender around umbilicus and lower part of the abdomen, not distended MUSCULOSKELETAL: no cyanosis, no swelling INTEGUMENT: no generalized pallor NEUROLOGICAL: cranial nerve function from 2-12 intact i, follows commands, speech not dysarthric LABORATORY DATA: Please see below. IMAGING: See above PROGNOSIS: Depends on biopsy result ACTIVITY: [As tolerated]. DIET: Regular DISPOSITION: Home ITEMS TO FOLLOWUP ON ON OUTPATIENT: Follow-up with oncologist and PCP DISCHARGE CONDITION: [Stable]. TIME SPENT ON DISCHARGE: 40minutes. Vital Signs/I&Os Vital Signs Date Time Temp Pulse Resp B/P (MAP) Pulse Ox O2 Delivery O2 Flow Rate FiO2 12/27/20 13:14 97.1 69 16 127/76 98 Room Air I&O- Last 24 Hours up to 6 AM 12/27/20 06:00 Intake Total 490 ml Output Total 775 ml Balance -285 ml Laboratory Data Labs 24H Laboratory Tests 2 12/27/20 05:45: Nucleated Red Blood Cells % (auto) 0.0, Anion Gap 2L, Glomerular Filtration Rate > 60.0, Calcium Level 8.4L CBC/BMP Laboratory Tests 12/27/20 05:45 Microbiology Microbiology 12/23/20 Stool Occult Blood (HEBER) - Final, Complete 12/20/20 Urine Culture - Final, Complete Discharge Medications Scheduled Bisacodyl (Dulcolax) 10 Mg Supp.rect, 1 SUP [facility] DAILY for constipation Doxycycline Hyclate (Doxycycline Hyclate) 100 Mg Tablet, 100 MG PO BID Ferrous Sulfate (Iron) 325 Mg Tablet, 1 TAB PO BID Pantoprazole Sodium (Pantoprazole Sodium) 40 Mg Tablet.dr, 40 MG PO DAILY Scheduled PRN Acetaminophen (Tylenol Extra Strength) 500 Mg Tablet, 500 MG PO Q4H PRN for PAIN LEVEL 1-5, (Reported) Acetaminophen (Tylenol 8 Hour) 650 Mg Tablet.er, 650 MG PO Q6HP PRN for pain Ondansetron (Ondansetron Odt) 4 Mg Tab.rapdis, 1 TAB PO Q6-8HP PRN for nausea/vomiting Polyethylene Glycol 3350 (Miralax) 17 Gm Powd.pack, 1 PKT PO DAILY PRN for constipation Tramadol HCl (Tramadol HCl) 50 Mg Tablet, 100 MG PO Q6HP PRN for SEVERE PAIN (PS 8-10) Allergies Coded Allergies: ciprofloxacin (Verified Allergy, Intermediate, tendon pain, 01/31/20) meperidine (Verified Allergy, Unknown, CONFUSION, 11/24/19) IVAN FLEMING DO Dec 27, 2020 13:38
== END 2020-12-27 14:32 | disposition home or self-care (01) | DRG 357 ==
LOC: M ED 16:41 → M ED INP 21:16 → M MSPAV 22:37
PROVIDERS: ADMIT General Practice; ATTEND Internal Medicine
PROC: 07BC3ZX Excision of Pelvis Lymphatic, Percutaneous Approach, Diagnostic (ICD-10-PCS; principal; 2020-12-26 16:00)
DX: K56.609 Unspecified intestinal obstruction, unspecified as to partial versus complete obstruction (principal); N39.0 Urinary tract infection, site not specified; C18.2 Malignant neoplasm of ascending colon; A69.20 Lyme disease, unspecified; C77.5 Secondary and unspecified malignant neoplasm of intrapelvic lymph nodes; D63.8 Anemia in other chronic diseases classified elsewhere; D50.0 Iron deficiency anemia secondary to blood loss (chronic); Z88.1 Allergy status to other antibiotic agents; Z88.8 Allergy status to other drugs, medicaments and biological substances; Z66 Do not resuscitate; Z92.21 Personal history of antineoplastic chemotherapy; Z90.49 Acquired absence of other specified parts of digestive tract